=== PATIENT | male | born 1965 | race Caucasian/White ===

== ENCOUNTER 2016-12-12 21:11 | Emergency (ER) | payer SELFPAY ==
[2016-12-12] MEDS ORDERED: Adacel (T-DAP) 0.5 ML VIAL ONE (21:31)
== END 2016-12-12 22:01 | disposition home or self-care (01) ==
LOC: BURERS 21:11
DX: S01.432A Puncture wound without foreign body of left cheek and temporomandibular area, initial encounter (principal); W45.8XXA Other foreign body or object entering through skin, initial encounter
CPT/HCPCS: 90471; 90715

== ENCOUNTER 2018-01-28 05:17 | Emergency (ER) | payer SELFPAY ==
[2018-01-28 06:15] LABS: #Basophils 0.2 thou/uL (0.0-0.2); #Eosinphils 0.3 thou/uL (0.0-0.7); #Lymphocytes 2.4 thou/uL (1.20-3.40); #Monocytes 0.7 thou/uL (0.11-0.59); #Neutrophils 7.3 thou/uL (1.40-6.50); %Basophils 1.6 % (0.0-1.0); %Eosinophils 2.8 % (0.0-10.0); %Lymphocytes 22.2 % (21.0-51.0); %Monocytes 6.2 % (0.0-10.0); %Neutrophils 67.2 % (42.0-75.0); Hemoglobin 13.3 g/dL (14.0-18.0); Mean Corpuscular HGB CONC 35.5 g/dL (32.0-36.0); Mean Corpuscular Volume 78.6 fL (78.0-98.0); Mean Platelet Volume 5.8 fL (7.4-10.4); Platelet Count 295 thou/uL (130-400); Red Blood Cell (RBC) Count 4.76 mill/uL (4.70-6.10); White Blood Cell (WBC) Count 10.9 thou/uL (4.8-10.8)
[2018-01-28 06:23] LABS: ALT (SGPT) 26 U/L (8-55); AST (SGOT) 23 U/L (5-34); Albumin 4.3 g/dL (3.5-5.0); Alkaline Phosphatase 80 U/L (40-150); Anion Gap 11 mmol/L (10-20); BUN (Urea Nitrogen) 27 mg/dL (8.4-25.7); Bilirubin, Total 0.3 mg/dL (0.2-1.2); Calc. Creatinine Clearance 0 mL/min (70-130); Calcium 9.6 mg/dL (7.8-10.44); Carbon Dioxide 27 mmol/L (22-29); Chloride 109 mmol/L (98-107); Estimated GFR-MDRD 59; Globulin 2.8 g/dL (2.4-3.5); Glucose 167 mg/dL (70-105); Protein, Total 7.1 g/dL (6.0-8.3); Sodium 143 mmol/L (136-145)
[2018-01-28 06:57] LABS: Bilirubin Small (Negative); Blood, Urine Moderate (Negative); Clarity Slightly Cloudy (Clear); Glucose, Urine (Dipstick) Negative (Negative); Leukocyte Negative (Negative); Nitrite Negative (Negative); Protein, Urine (Dipstick) 30 mg/dL (Neg-Trace); Urobilinogen 0.2 mg/dL (0.2-1.0); pH, Urine 5.5 (5.0-9.0)
[2018-01-28 06:58] LABS: Bacteria/HPF 1+ HPF (None Seen); Other Microscopic Description LARGE MUCOUS STRANDS; Squamous Epithelial 0-3 HPF (0-3)
--- NOTE | 2018-01-28 08:32 | CT ---
PRELIMINARY REPORT/[facility]/EMERGENTY AFTER-HOURS PROCEDURE CT Abdomen and Pelvis Without Intravenous Contrast EXAM DATE/TIME: 01/28/2018 6:18 AM CLINICAL HISTORY: 52 years old, male; Pain; Abdominal pain; Acute; Patient HX: RT. Sided pain TECHNIQUE: Axial computed tomography images of the abdomen and pelvis without intravenous contrast. Coronal reformatted images were created and reviewed. COMPARISON: No relevant prior studies available. FINDINGS: Lower thorax: No acute findings. ABDOMEN: Liver: Normal. No mass. Gallbladder and bile ducts: Normal. No calcified stones. No ductal dilation. Pancreas: Normal. No ductal dilation. Spleen: Normal. No splenomegaly. Adrenals: Normal. No mass. Kidneys and ureters: Probable 1.5 cm cyst in the midportion of left kidney. Tiny left intrarenal calc boby. There appears to be a 2 mm calculus in the base of the bladder which may represent a recently pa ssed stone. No evidence of hydronephrosis or ureteral stones. Stomach and bowel: Normal. No obstruction. No mucosal thickening. Appendix: The appendix is seen and is normal in appearance. PELVIS: Bladder: There appears to be a 2 mm calculus in the base of the bladder which may represent a recentl y passed stone. Reproductive: Unremarkable as visualized. ABDOMEN and PELVIS: Intraperitoneal space: Normal. No free air. No significant fluid collection. Bones/joints: No acute fracture. No dislocation. Soft tissues: Unremarkable. Vasculature: Vascular calcifications are present. Lymph nodes: Normal. No enlarged lymph nodes. IMPRESSION: 1. Tiny left intrarenal calculi. There appears to be a 2 mm calculus in the base of the bladder which may represent a recently passed stone. No evidence of hydronephrosis or ureteral stones. 2. Remainder of findings as described above. Thank you for allowing us to participate in the care of your patient. Dictated and Authenticated by: Vidya Rdz MD 01/28/2018 7:48 AM Central Time ([place] & [place]) CT ABDOMEN AND PELVIS WITHOUT CONTRAST: Date: 01/28/[address] of the abdomen and pelvis was performed for evaluation of right lower quadrant pain. Axial slices were acquired, and coronal and sagittal reconstructions were done. FINDINGS: The lung bases are clear. The liver, spleen, pancreas, gallbladder, adrenal glands, and abdominal aor ta show no acute findings within the limitations of a noncontrast study. Regarding the kidneys, there is a tiny, nonobstructing calculus in the left kidney. None are seen in the right. There is a vague 2.0 cm lucency in the medial left kidney. Statistically, this is most lik romaine a cyst, however, an elective ultrasound is needed to assure that it is not solid. The appendix was identified and appears normal. No inflammatory changes are seen in and around bowel. There is no dilation of bowel. No free air or free fluid seen. CT of the pelvis showed no masses, free fluid, or inflammatory changes. No definite reasons for right lower quadrant pain were found. At most, one could say that some of the loops of small bowel are flu id-filled, but otherwise appear normal. An incidental finding on this study is bilateral spondylolysi s of L5. There is very slight concentric bulge of the L5-S1 disc. IMPRESSION: 1. No definite cause for right lower quadrant pain seen. 2. 2.0 cm lucency in the left kidney. Statistically most likely a cyst, but is important to do an el ective ultrasound to prove that there is no solid mass here. 3. Nonobstructing calculus left kidney. Possible tiny calculus in bladder. 4. Bilateral spondylolysis of L5. CODE T. POS: HOME
== END 2018-01-28 07:49 | disposition home or self-care (01) ==
LOC: BURERS 05:17
DX: N20.0 Calculus of kidney (principal); F17.210 Nicotine dependence, cigarettes, uncomplicated
CPT/HCPCS: 74176; 80053; 81003; 81015; 85025; 87086

== ENCOUNTER 2019-03-02 08:28 | Emergency (ER) | payer SELFPAY ==
[2019-03-02] MEDS ORDERED: Ketorolac Tromethamine 30 MG/ML VIAL ONE (08:58)
[2019-03-02 09:05] LABS: #Basophils 0.1 thou/uL (0.0-0.2); #Eosinphils 0.6 thou/uL (0.0-0.7); #Lymphocytes 1.9 thou/uL (1.20-3.40); #Monocytes 0.5 thou/uL (0.11-0.59); %Eosinophils 7.8 % (0.0-10.0); %Lymphocytes 23.8 % (21.0-51.0); %Monocytes 6.2 % (0.0-10.0); %Neutrophils 61.2 % (42.0-75.0); Hemoglobin 12.4 g/dL (14.0-18.0); Mean Corpuscular HGB CONC 32.1 g/dL (32.0-36.0); Mean Corpuscular Hemoglobin 28.9 pg (27.0-31.0); Mean Corpuscular Volume 89.9 fL (78.0-98.0); Mean Platelet Volume 6.1 fL (7.4-10.4); Platelet Count 236 thou/uL (130-400); RBC Distribution Width 12.8 % (11.5-14.5); White Blood Cell (WBC) Count 8.1 thou/uL (4.8-10.8)
[2019-03-02 09:19] LABS: ALT (SGPT) 13 U/L (8-55); AST (SGOT) 15 U/L (5-34); Albumin 3.8 g/dL (3.5-5.0); Alkaline Phosphatase 64 U/L (40-150); Anion Gap 11 mmol/L (10-20); BUN (Urea Nitrogen) 23 mg/dL (8.4-25.7); Bilirubin, Total 0.3 mg/dL (0.2-1.2); Calc. Creatinine Clearance 0 mL/min (70-130); Calcium 8.8 mg/dL (7.8-10.44); Carbon Dioxide 29 mmol/L (22-29); Chloride 108 mmol/L (98-107); Estimated GFR-MDRD 69; Globulin 2.3 g/dL (2.4-3.5); Glucose 138 mg/dL (70-105); Lipase 19 U/L (8-78); Potassium 3.7 mmol/L (3.5-5.1); Protein, Total 6.1 g/dL (6.0-8.3); Sodium 144 mmol/L (136-145)
[2019-03-02] MEDS ORDERED: Lidocaine Viscous Sol 2% 15 ml UD Cup ONE (09:45)
[2019-03-02 09:59] LABS: Bilirubin Small (Negative); Blood, Urine Large (Negative); Glucose, Urine (Dipstick) Negative (Negative); Leukocyte Negative (Negative); Nitrite Negative (Negative); Protein, Urine (Dipstick) 30 mg/dL (Neg-Trace)
[2019-03-02 10:03] LABS: Clarity Cloudy (Clear)
[2019-03-02 10:04] LABS: Bacteria/HPF None Seen HPF (None Seen); RBC/HPF Greater than 50 HPF (0-3); Squamous Epithelial 0-3 HPF (0-3); WBC/HPF 0-3 HPF (0-3)
--- NOTE | 2019-03-02 17:34 | CT ---
CT ABDOMEN AND PELVIS WITHOUT CONTRAST: 03/02/19 Comparison is made with an 01/28/18 study. The patient presents with left flank pain. There is a very tiny almost imperceptible calcification in the left posterior part of the urinary norm dder. It may actually be in the bladder itself or right at the left UVJ. There is some very minor dil ation of the collecting system of the left kidney, but certainly greater than it was in 2018. The fin dings suggest a very tiny distal ureteral calculus causing minor hydronephrosis. Some tiny nonobstruc ting stones remain in either kidney. As on the prior study, there is a low density area in the medial part of the left kidney. Statistically, this is most likely a cyst but an ultrasound would be neede d to confirm it. The remainder of the scan showed no acute changes. The lung bases are clear. The liver, spleen, pancr eas, adrenal glands, gallbladder, and abdominal aorta all showed no acute findings within the limitat ions of a noncontrast study. The bowel shows no distention or inflammatory change around it. There is no bowel wall thickening, fr ee air, or free fluid. CT of the pelvis shows no pelvic masses, free fluid, or inflammatory changes. IMPRESSION: 1. Very tiny (no more than 2 mm) stone in the distal left ureter either at the UVJ or just recen tly having entered the bladder. There is minor left calyceal dilation. 2. Several tiny nonobstructing renal calculi remaining behind in each kidney. POS: HOME
== END 2019-03-02 11:06 | disposition home or self-care (01) ==
LOC: BURERS 08:28
DX: N13.2 Hydronephrosis with renal and ureteral calculous obstruction (principal); R00.1 Bradycardia, unspecified; F17.210 Nicotine dependence, cigarettes, uncomplicated
CPT/HCPCS: 51701; 74176; 80053; 81003; 81015; 83690; 84484; 85025; 93005; 96374; J1885